=== PATIENT | male | born 1990 | race Caucasian/White ===

== ENCOUNTER 2019-07-24 16:21 | Emergency (ER) | payer OTHER ==
[~2019-07-24] VITALS: Ht 188 cm; Wt 77.1 kg
[~2019-07-24 16:21] MED LIST: ANUSOL-HC25 MG RC; ANUSOL-HC30 GM RC; FLEXERIL10 MG PO; PREPARATION H1 EACH RC; ULTRAM50 MG PO
[2019-07-24] MEDS ORDERED: KEFLEX500 MG PO (16:43)
== END 2019-07-24 16:52 | disposition home or self-care (01) ==
LOC: ED 16:21
DX: S61.532A Puncture wound without foreign body of left wrist, initial encounter (principal); W29.4XXA Contact with nail gun, initial encounter
CPT/HCPCS: 99283; A9270

== ENCOUNTER 2023-02-18 01:51 | Emergency (ER) | payer OTHER ==
[~2023-02-18] VITALS: Ht 188 cm; Wt 77.1 kg
[~2023-02-18 01:51] MED LIST changes: +KEFLEX500 MG PO
[2023-02-18 02:51] LABS: EOSINOPHILS 2.1 % (0-6); HEMATOCRIT 39.4 % (35.0-50.0); HEMOGLOBIN 13.4 g/dL (12.0-18.0); LYMPHOCYTES 24.2 % (24-44); MCH 29.4 (27-36); MCHC 33.9 g/dl (30-36); MCV 86.7 fl (81-99); MONOCYTES 6.7 % (0-12); PLATELET COUNT 290 K/uL (140-440); RBC 4.55 M/ul (4.3-5.7); RDW 13.6 (10.5-15.0)
[2023-02-18 03:14] LABS: ALBUMIN 3.7 g/dL (3.4-5.0); ALBUMIN/GLOBULIN RATIO 1.61 (1.1-2.4); ANION GAP 13.4 (7-21); BILIRUBIN, TOTAL 0.5 ng/dL (0.2-1.0); CALCIUM 8.7 mg/dL (8.5-10.1); POTASSIUM 3.4 mmol/L (3.5-5.1)
[2023-02-18] MEDS ORDERED: AMOX TR-K CLV1 EAC1 PO (03:36)
[2023-02-18] MEDS ORDERED: PERCOCET 5-3251 EACH PO (03:36)
[2023-02-18 04:33] VITALS: BP 122/72
== END 2023-02-18 04:42 | disposition home or self-care (01) ==
LOC: ED 01:51
PROVIDERS: Family Medicine
DX: K04.7 Periapical abscess without sinus (principal); F17.200 Nicotine dependence, unspecified, uncomplicated
CPT/HCPCS: 36415; 70487; 80053; 85025; 96375; 96376; 99283-25; J0295; J1100; J2270; J2405

== ENCOUNTER 2023-03-30 12:41 | Emergency (ER) | payer OTHER ==
[~2023-03-30] VITALS: Ht 188 cm; Wt 82.5 kg
[~2023-03-30 12:41] MED LIST changes: +AMOX TR-K CLV1 EAC1 PO; +PERCOCET 5-3251 EACH PO
[2023-03-30 12:50] VITALS: BP 113/77
[2023-03-30] MEDS ORDERED: ACULAR5 ML OD (13:48)
[2023-03-30] MEDS ORDERED: GENTAMICIN SULFA5 ML OD (13:48)
== END 2023-03-30 14:49 | disposition home or self-care (01) ==
LOC: ED 12:41
DX: H10.89 Other conjunctivitis (principal); F17.200 Nicotine dependence, unspecified, uncomplicated
CPT/HCPCS: 99283

== ENCOUNTER 2023-11-03 08:46 | Emergency (ER) | payer OTHER ==
[~2023-11-03] VITALS: Ht 188 cm; Wt 82.1 kg
[~2023-11-03 08:46] MED LIST changes: +ACULAR5 ML OD; +GENTAMICIN SULFA5 ML OD
[2023-11-03] MEDS ORDERED: dexAMETHasone 4 MG TAB PO ONE (09:30)
[2023-11-03] MEDS ORDERED: LIDOCAINE HCL 4% 1 EACH PATCH TD ONE (09:30)
[2023-11-03] MEDS ORDERED: KETOROLAC TROMETHAMINE 60 MG/2 ML VIAL IM ONE (09:30)
[2023-11-03] MEDS ORDERED: methocarbamoL 500 MG TABLET PO ONE (09:30)
[2023-11-03] MEDS ORDERED: METHOCARBAMOL750 MG PO (09:35)
[2023-11-03] MEDS ORDERED: METHYLPREDNISOLO4 M1 PO (09:35)
[2023-11-03 09:50] VITALS: BP 122/76
== END 2023-11-03 09:55 | disposition home or self-care (01) ==
LOC: ED 08:46
DX: M54.50 Low back pain, unspecified (principal); F17.200 Nicotine dependence, unspecified, uncomplicated
CPT/HCPCS: 96372; 99283; A9270; J1885; J8540